=== PATIENT | female | born 1985 | race Asian ===

== ENCOUNTER 2017-02-16 11:23 | Emergency (ER) | payer OTHER ==
[~2017-02-16] VITALS: Ht 160 cm; Wt 63.5 kg
[~2017-02-16 11:23] MED LIST: BUTA1TAB55 PO; CODE118S2 PO; CPR500T PO; FRS325T PO; HYDR-1231 PO; HYDR-2856; HYDR-3714 PO; HYDR-757 PO; IBP800T PO; IBUP-1773 PO; JANUVIA; NAPR-243 PO; NEOM28OI3 TP; NITR-65 PO; NITR100C3 PO; ONDA-42 SL; ONDAN4ODT PO; PHEN200T27 PO; PNV1TABL9 PO; PRM25T; PRM25T PO; SUCR1TAB PO; TRM50T PO
--- NOTE | 2017-02-16 12:15 | ED GU-Female ---
General Chief Complaint: -Female Stated Complaint: ABNORMAL VAG BLEEDING Nursing Triage Note: Pt reports abnormal vaginal bleeding that started on Tuesday 02/13. Pt reports she is on control and typically has regular periods. Pt reports LMP ended 2 weeks ago. Pt states bleeding is brown with clots. Nursing Sepsis Screen: No Definite Risk Source: patient Exam Limitations: no limitations History of Present Illness Time seen by provider: 12:12 Initial Comments To ER with reports of vaginal bleeding and cramping as well as low back pain that started on Tuesday 02/13. She states that she is on control and has regular periods typically. Her last menstrual period ended 2 weeks ago. She states that she has been passing clots. She has only had to use one pad today to control bleeding. She also states that sexual intercourse was painful. She denies fevers or chills. She is on Falmina control. Timing/Duration: getting worse, other Severity/Quality: cramping Location: suprapubic Activities at Onset: none Prior Genitourinary Problems: none Associated Symptoms: No abdominal pain, No dysuria, lower back pain, No nausea/ vomiting, No urinary frequency Allergies and Home Medications Allergies Coded Allergies: No Known Drug Allergies (Unverified , 11/10/11) Home Medications Ondansetron Hcl 4 Mg Tab, 4 MG SL Q4H PRN for NAUSEA/VOMITING, #10 FOR NAUSEA AND VOMITING Prescribed by: URSULA RIOJAS on 09/02/14 1338 Sucralfate 1 G Tablet, 1 G PO QID, #40 Prescribed by: URSULA RIOJAS on 09/02/14 1338 Constitutional: see HPI EENTM: see HPI Respiratory: no symptoms reported Cardiovascular: no symptoms reported Genitourinary: see HPI Musculoskeletal: no symptoms reported Skin: no symptoms reported Psychiatric/Neurological: No Symptoms Reported Endocrine: No Symptoms Reported Past Bzpxmtl-Htnxhg-Drnlgf Hx Patient Social History Recent Foreign Travel: No Contact w/Someone Who Travel: No Recent Infectious Disease Expo: No Immunizations Up To Date Tetanus Booster (TDap): Unknown Reproductive System Hx Reproductive Disorders: No Genitourinary Genitourinary Disorders: Kidney Stones Musculoskeletal Musculoskeletal Disorders: Chronic Back Pain Blood Transfusions Adverse Reaction to a Blood Tr: No Family Medical History Significant Family History: No Pertinent Family Hx Family Medial History: Cancer 03 FATHER (pancreatic) grandfather (pancreatic) Infertile 09 BROTHER () Kidney disease No Family History of: Abdominal aortic aneurysm Leicester's disease Alcoholism Aphasia Cancer of colon Cataract Chest pain Congenital heart disease Congestive heart failure Cystic fibrosis Dementia Dysphagia Family history: Allergy Family history: Alzheimer's disease Family history: Arthritis Family history: Asthma Family history: Breast disease Family history: Cardiovascular disease Family history: Coronary thrombosis Family history: Diabetes mellitus Family history: Gastrointestinal disease Family history: Glaucoma Family history: Hypertension Family history: Osteoporosis Family history: Thyroid disorder Headache Hearing loss Heart disease Hereditary disease History of - anemia History of - disorder History of - respiratory disease History of drug abuse Human immunodeficiency virus (HIV) seropositivity Hypercholesterolemia Malignant neoplasm of lung Myocardial infarction Parkinson's disease Prostate cancer Psychotic disorder Seizure disorder Stroke Tuberculosis Visual impairment Physical Exam Vital Signs Vital Sign - Last 12Hours 02/16/17 11:35 Temp 99.1 Pulse 97 Resp 18 B/P (MAP) 119/81 Pulse Ox 96 O2 Delivery Room Air Capillary Refill : Less Than 3 Seconds General Appearance: WD/WN, no apparent distress HEENT: PERRL/EOMI, normal ENT inspection Neck: non-tender, full range of motion Respiratory: no respiratory distress, no accessory muscle use Gastrointestinal: non tender, soft Extremities: normal range of motion, non-tender Neurologic/Psychiatric: alert, normal mood/affect, oriented x 3 Skin: normal color, warm/dry Progress/Results/Core Measures Results/Orders Lab Results Laboratory Tests Test 02/16/17 12:44 02/16/17 14:22 Range/Units White Blood Count 7.2 4.3-11.0 10^3/uL Red Blood Count 4.30 L 4.35-5.85 10^6/uL Hemoglobin 12.6 11.5-16.0 G/DL Hematocrit 37 35-52 % Mean Corpuscular Volume 87 80-99 FL Mean Corpuscular Hemoglobin 29 25-34 PG Mean Corpuscular Hemoglobin Concent 34 32-36 G/DL Red Cell Distribution Width 14.6 H 10.0-14.5 % Platelet Count 199 130-400 10^3/uL Mean Platelet Volume 11.9 H 7.4-10.4 FL Neutrophils (%) (Auto) 67 42-75 % Lymphocytes (%) (Auto) 25 12-44 % Monocytes (%) (Auto) 6 0-12 % Eosinophils (%) (Auto) 2 0-10 % Basophils (%) (Auto) 1 0-10 % Neutrophils # (Auto) 4.8 1.8-7.8 X 10^3 Lymphocytes # (Auto) 1.8 1.0-4.0 X 10^3 Monocytes # (Auto) 0.4 0.0-1.0 X 10^3 Eosinophils # (Auto) 0.1 0.0-0.3 10^3/uL Basophils # (Auto) 0.0 0.0-0.1 10^3/uL Prothrombin Time 13.9 12.2-14.7 SEC INR Comment 1.1 0.8-1.4 Activated Partial Thromboplast Time 32 24-35 SEC Sodium Level 138 135-145 MMOL/L Potassium Level 4.3 3.6-5.0 MMOL/L Chloride Level 109 H 98-107 MMOL/L Carbon Dioxide Level 24 21-32 MMOL/L Anion Gap 5 5-14 MMOL/L Blood Urea Nitrogen 7 7-18 MG/DL Creatinine 0.67 0.60-1.30 MG/DL Estimat Glomerular Filtration Rate > 60 BUN/Creatinine Ratio 10 Glucose Level 94 70-105 MG/DL Calcium Level 9.0 8.5-10.1 MG/DL Total Bilirubin 0.3 0.1-1.0 MG/DL Aspartate Amino Transf (AST/SGOT) 14 5-34 U/L Alanine Aminotransferase (ALT/SGPT) 17 0-55 U/L Alkaline Phosphatase 45 40-136 U/L Total Protein 7.0 6.4-8.2 GM/DL Albumin 4.0 3.2-4.5 GM/DL Urine Color OTHER H Urine Clarity VERY CLOUDY H Urine pH 8 5-9 Urine Specific [place] 1.010 L 1.016-1.022 Urine Protein NEGATIVE NEGATIVE Urine Glucose (UA) NEGATIVE NEGATIVE Urine Ketones NEGATIVE NEGATIVE Urine Nitrite NEGATIVE NEGATIVE Urine Bilirubin NEGATIVE NEGATIVE Urine Urobilinogen NORMAL NORMAL MG/DL Urine Leukocyte Esterase 2+ H NEGATIVE Urine RBC (Auto) 5+ H NEGATIVE Urine RBC TNTC H /HPF Urine WBC 2-5 /HPF Urine Squamous Epithelial Cells >50 H /HPF Urine Renal Epithelial Cells NONE /HPF Urine Crystals NONE /LPF Urine Bacteria TRACE /HPF Urine Casts NONE /LPF Urine Mucus NEGATIVE /LPF Urine Culture Indicated NO My Orders Orders - URSULA RIOJAS [employer] Cbc With Automated Diff (02/16/17 12:09) Comprehensive Metabolic Panel (02/16/17 12:09) Ua Culture If Indicated (02/16/17 12:09) Protime With Inr (02/16/17 12:09) Partial Thromboplastin Time (02/16/17 12:09) Urine Bedside (02/16/17 12:09) Us Non Ob Transvaginal [id number] (02/16/17 12:09) Vital Signs/I&O Vital Sign - Last 12Hours 02/16/17 11:35 Temp 99.1 Pulse 97 Resp 18 B/P (MAP) 119/81 Pulse Ox 96 O2 Delivery Room Air Blood Pressure Mean: 94 Diagnostic Imaging Diagonstic Imaging: Ultrasound Comments NAME: ART ANG[facility] REC#: [id number] PT STATUS: REG ER : 1985 PHYSICIAN: URSULA RIOJAS APRN ADMIT DATE: 02/16/17/ER Signed Date of Exam:02/16/17 US NON OB TRANSVAGINAL [id number] Transvaginal pelvic ultrasound. INDICATION: Abnormal bleeding, low back pain. FINDINGS: Uterus is 6.6 x 4.5 x 4.6 cm. The endometrial stripe is 5 mm in thickness. The right ovary is 5.8 x 1.9 x 1.7 cm. The ovarian tissue around it demonstrates color flow with arterial and venous waveforms. There is a simple-appearing cyst measuring 4.0 x 1.6 x 2.8 cm with no internal solid component. The left ovary is 4.9 x 1.5 x 1.3 cm with multiple normal-appearing follicles seen in the arterial and venous waveforms seen. Minimal amount of free fluid is seen in the pelvis adjacent to the right ovary. IMPRESSION: Simple-appearing 4-cm right ovarian cyst. Dictated by: Dictated on workstation # [id number] Dict: 02/16/17 1354 Trans: 02/16/17 1412 [id number] Interpreted by: WALYON ROSADO MD Electronically signed by: WAYLON ROSADO MD 02/16/17 1412 Departure Impression Impression: Primary Impression: Right ovarian cyst Additional Impression: Irregular menstrual bleeding Disposition: 01 HOME, SELF-CARE Condition: Stable Departure-Patient Inst. Decision time for Depature: 14:32 Referrals: LIANNA CABRERA DO (PCP/Family) Primary Care Physician Patient Instructions: IRREGULAR VAGINAL BLEEDING, Ovarian Cyst (DC) Add. Discharge Instructions: 1. Follow-up with Dr. Cabrera. Call today or tomorrow to make an appointment to be seen in the next few weeks to schedule a repeat ultrasound to make sure that this cyst is going away. This ovarian cyst on your right ovary is most likely the cause of your symptoms. 2. Take oiag-mib-cazirbr ibuprofen 800 mg every 6 hours to reduce bleeding and cramping. All discharge instructions reviewed with patient and/or family. Voiced understanding. Work/School Note: Work Release Form Date Seen in the Emergency Department: Feb 16, 2017 Return to Work: Feb 17, 2017 Copy Copies To 1: LIANNA CABRERA PETER J APRN Feb 16, 2017 12:15
[2017-02-16 12:58] LABS: BASOPHILS % (AUTO) 1 % (0-10); EOSINOPHILS # (AUTO) 0.1 10^3/uL (0.0-0.3); EOSINOPHILS % (AUTO) 2 % (0-10); LYMPHOCYTES # (AUTO) 1.8 X 10^3 (1.0-4.0); LYMPHOCYTES % (AUTO) 25 % (12-44); MEAN CORPUSCULAR HEMOGLOBIN 29 PG (25-34); MEAN CORPUSCULAR HGB CONC 34 G/DL (32-36); MEAN CORPUSCULAR VOLUME 87 FL (80-99); MEAN PLATELET VOLUME 11.9 FL (7.4-10.4); MONOCYTES # (AUTO) 0.4 X 10^3 (0.0-1.0); MONOCYTES % (AUTO) 6 % (0-12); NEUTROPHILS # (AUTO) 4.8 X 10^3 (1.8-7.8); NEUTROPHILS % (AUTO) 67 % (42-75); PLATELET COUNT 199 10^3/uL (130-400); RED CELL DISTRIBUTION WIDTH 14.6 % (10.0-14.5); WHITE BLOOD COUNT 7.2 10^3/uL (4.3-11.0)
[2017-02-16 13:08] LABS: INR 1.1 (0.8-1.4); PROTHROMBIN TIME PATIENT 13.9 SEC (12.2-14.7)
[2017-02-16 13:19] LABS: ALANINE AMINOTRANSFERASE 17 U/L (0-55); ANION GAP 5 MMOL/L (5-14); ASPARTATE AMINO TRANSFERASE 14 U/L (5-34); BILIRUBIN,TOTAL 0.3 MG/DL (0.1-1.0); BLOOD UREA NITROGEN 7 MG/DL (7-18); BUN/CREATININE RATIO 10; CARBON DIOXIDE 24 MMOL/L (21-32); CHLORIDE 109 MMOL/L (98-107); CREATININE SERUM 0.67 MG/DL (0.60-1.30); GFR ESTIMATED > 60; GLUCOSE 94 MG/DL (70-105); POTASSIUM 4.3 MMOL/L (3.6-5.0); SODIUM 138 MMOL/L (135-145)
--- NOTE | 2017-02-16 14:12 | Diagnostic Imaging Report ---
Transvaginal pelvic ultrasound. INDICATION: Abnormal bleeding, low back pain. FINDINGS: Uterus is 6.6 x 4.5 x 4.6 cm. The endometrial stripe is 5 mm in thickness. The right ovary is 5.8 x 1.9 x 1.7 cm. The ovarian tissue around it demonstrates color flow with arterial and venous waveforms. There is a simple-appearing cyst measuring 4.0 x 1.6 x 2.8 cm with no internal solid component. The left ovary is 4.9 x 1.5 x 1.3 cm with multiple normal-appearing follicles seen in the arterial and venous waveforms seen. Minimal amount of free fluid is seen in the pelvis adjacent to the right ovary. IMPRESSION: Simple-appearing 4-cm right ovarian cyst. Dictated by: Dictated on workstation # [id number]
[2017-02-16 14:31] LABS: BILIRUBIN,URINE NEGATIVE (NEGATIVE); KETONES,URINE NEGATIVE (NEGATIVE); LEUKOCYTE ESTERASE ,URINE 2+ (NEGATIVE); NITRITE,URINE NEGATIVE (NEGATIVE); PH,URINE 8 (5-9); PROTEIN,URINE NEGATIVE (NEGATIVE); UROBILINOGEN,URINE NORMAL (NORMAL)
[2017-02-16 14:55] LABS: SQUAMOUS EPITHELIAL CELL,UR >50 /HPF
[2017-02-16 15:04] VITALS: BP 102/65
== END 2017-02-16 15:04 | disposition home or self-care (01) ==
LOC: EDUNIT# 11:23 → ER 11:28
DX: N83.201 Unspecified ovarian cyst, right side (principal); N92.6 Irregular menstruation, unspecified; Z87.442 Personal history of urinary calculi; Z80.0 Family history of malignant neoplasm of digestive organs
CPT/HCPCS: 36415; 76830; 80053; 81000; 85025; 85610; 85730; 99283

== ENCOUNTER → 2017-05-15 | Outpatient (CLI) | payer OTHER ==
--- NOTE | 2017-05-15 14:51 | Diagnostic Imaging Report ---
INDICATION: Persistent pelvic pain. COMPARISON: 02/16/2017. FINDINGS: Uterus measures approximately 6.5 x 5 x 4.6 cm. Endometrial stripe measures 1.1 cm. No myometrial masses are seen. Right ovary measures 4.1 x 2.2 x 2.4 cm. There are multiple follicular cysts. The dominant cyst previously noted has decreased considerably in size now measuring 1.9 x 1.2 cm. This previously measured 4 x 2.8 x 1.6 cm. Left ovary measures approximate 4.9 x 1.8 x 2 cm. Multiple follicular cysts are present. There is a cyst present with debris measuring 1.8 x 1.5 cm now consistent with a hemorrhagic cyst. There is a small amount of free fluid present adjacent to the left ovary. IMPRESSION: 1. Significant decrease in size of a simple cyst in the right ovary since previous exam. 2. Development of a complex cyst measuring 1.8 cm in the left ovary likely representing hemorrhagic cyst with small amount of free fluid present. Dictated by: Dictated on workstation # [id number]
== END ==
LOC: RAD 13:09
PROVIDERS: ATTEND Family Medicine
DX: N83.201 Unspecified ovarian cyst, right side (principal); N83.202 Unspecified ovarian cyst, left side
CPT/HCPCS: 76830; 76856

== ENCOUNTER 2017-05-27 13:19 | Outpatient (CLI) | payer OTHER ==
[~2017-05-27] VITALS: Ht 160 cm; Wt 58.1 kg
[2017-05-27 13:25] VITALS: BP 115/77
[2017-05-27 13:55] LABS: BASOPHILS % (AUTO) 1 % (0-10); EOSINOPHILS # (AUTO) 0.2 10^3/uL (0.0-0.3); EOSINOPHILS % (AUTO) 3 % (0-10); LYMPHOCYTES # (AUTO) 1.6 X 10^3 (1.0-4.0); LYMPHOCYTES % (AUTO) 21 % (12-44); MEAN CORPUSCULAR HEMOGLOBIN 30 PG (25-34); MEAN CORPUSCULAR HGB CONC 34 G/DL (32-36); MEAN CORPUSCULAR VOLUME 88 FL (80-99); MEAN PLATELET VOLUME 11.9 FL (7.4-10.4); MONOCYTES # (AUTO) 0.5 X 10^3 (0.0-1.0); MONOCYTES % (AUTO) 6 % (0-12); NEUTROPHILS # (AUTO) 5.2 X 10^3 (1.8-7.8); NEUTROPHILS % (AUTO) 69 % (42-75); PLATELET COUNT 214 10^3/uL (130-400); RED BLOOD COUNT 4.33 10^6/uL (4.35-5.85); RED CELL DISTRIBUTION WIDTH 14.3 % (10.0-14.5); WHITE BLOOD COUNT 7.6 10^3/uL (4.3-11.0)
[2017-05-27] MEDS ORDERED: AMOX-355 PO (13:59)
[2017-05-28] MEDS ORDERED: IBUP-1773 PO (07:25)
[2017-05-28] MEDS ORDERED: HYDR-757 PO (07:25)
== END 2017-05-27 13:45 | disposition home or self-care (01) ==
LOC: PREOP 13:19
PROVIDERS: ATTEND Obstetrics & Gynecology
DX: Z01.812 Encounter for preprocedural laboratory examination (principal); Z11.2 Encounter for screening for other bacterial diseases; R10.2 Pelvic and perineal pain; N83.201 Unspecified ovarian cyst, right side
CPT/HCPCS: 36415; 84703; 85025; 87081

== ENCOUNTER 2017-05-28 06:57 | Day surgery (SDC) | payer OTHER ==
[~2017-05-28] VITALS: Ht 160 cm; Wt 58.1 kg
[~2017-05-28 06:57] MED LIST changes: +AMOX-355 PO
[2017-05-28] MEDS ORDERED: MIDAZOLAM 2 MG/2 ML (VERSED) VIAL IV ONE (07:15)
[2017-05-28] MEDS ORDERED: ceFAZolin 1,000 MG (ANCEF) VIAL ONE (07:19)
[2017-05-28] MEDS ORDERED: NS (IVPB) 50 ML ONE (07:19)
[2017-05-28] MEDS ORDERED: BUPIVACAINE 0.25% 30 ML (SENSORCAINE) VIAL ONE (07:21)
--- NOTE | 2017-05-28 07:23 | Progress Note-Pre Operative ---
Pre-Operative Progress Note H&P Reviewed The H&P was reviewed, patient examined and no changes noted. Date Seen by Provider: May 28, 2017 Time Seen by Provider: 08:00 Date H&P Reviewed: May 28, 2017 Time H&P Reviewed: 08:00 Pre-Operative Diagnosis: Ovarian cyst, Dysparenuia, Acute on CPP CAITLYN MAZARIEGOS DO May 28, 2017 7:23 am
--- NOTE | 2017-05-28 07:24 | Discharge Inst-Women's Service ---
Discharge Inst-Women's Serv Depart Medication/Instructions New, Converted or Re-Newed RX: RX on Chart Consults/Follow Up Additional Follow Up: Yes Activity Activity: Activity as Tolerated Driving Instructions: You May Drive (do not drive until after 06/01) NO SMOKING: NO SMOKING Diet Discharge Diet: No Restrictions Symptoms to Report to : Bleeding Excessive, Pain Increased, Fever Over 101 Degrees F, Vaginal Bleeding Increase, Questions/Concerns For Any Problems or Questions: Contact Your Physician Skin/Wound Care Infection Signs and Symptoms: Increased Redness, Foul Odor of Wound, Increased Drainage, Skin Itchy or Has a Rash, Increased Swelling, Temperature Above 101 F Operative Area Clean and Dry: Keep Incision Clean/Dry Stitches/[place]/Dermabond: Dermabond, Care of Stitches Bathing Instructions: CAITLYN Iraheta DO May 28, 2017 7:24 am
[2017-05-28] MEDS ORDERED: HYDR-757 PO (07:25)
[2017-05-28] MEDS ORDERED: IBUP-1773 PO (07:25)
[2017-05-28] MEDS ORDERED: LACTATED RINGERS 1,000 ML IV PRN (07:25)
[2017-05-28] MEDS ORDERED: ceFAZolin INJECTION 1,000 MG in NS (IVPB) 50 ML IV ONE (07:30)
[2017-05-28 07:50] VITALS: BP 108/75
[2017-05-28] MEDS ORDERED: proPOfol 200 MG/20 ML (DIPRIVAN) VIAL IV ONE (07:53)
[2017-05-28] MEDS ORDERED: ROCURONIUM 50 MG/5 ML (ZEMURON) VIAL IV ONE (07:53)
[2017-05-28] MEDS ORDERED: LIDOCAINE PF 2% 5 ML (XYLOCAINE) VIAL ONE (07:53)
[2017-05-28] MEDS ORDERED: MIDAZOLAM 2 MG/2 ML (VERSED) VIAL ONE (07:53)
[2017-05-28] MEDS ORDERED: fentaNYL INJECTION 100 MCG/2 ML AMP ONE (07:53)
[2017-05-28] MEDS ORDERED: SEVOFLURANE (ULTANE) 15 ML INHAL SOLN ONE (07:53)
[2017-05-28] MEDS ORDERED: ONDANSETRON 4 MG/2 ML (SDV) Z0FRAN ONE (07:54)
[2017-05-28] MEDS ORDERED: DEXAMETHASONE 10 MG/ML (DECADRON) 1 ML VIAL ONE (07:54)
[2017-05-28] MEDS ORDERED: ceFAZolin 1 GM/NS 50 ML IVPB IV ONE ×2 (08:15)
[2017-05-28] MEDS ORDERED: NEOSTIGMINE (BLOXIVERZ ) 1 MG/1ML 10 ML VIAL ONE (08:52)
[2017-05-28] MEDS ORDERED: GLYCOPYRROLATE 0.2 MG/ML (ROBINUL) 2 ML VIAL ONE (08:52)
[2017-05-28] MEDS: morphine INJ 10 MG/ML 1ML (SYR OR VIAL) IVP PRN ×2 (09:10→09:15)
[2017-05-28] MEDS ORDERED: ONDANSETRON 4 MG/2 ML (SDV) Z0FRAN IVP PRN (09:15)
[2017-05-28] MEDS ORDERED: MEPERIDINE (DEMEROL) INJ 50 MG/ML IVP PRN (09:15)
[2017-05-28 09:50] VITALS: BP 112/77
[2017-05-28] MEDS: LACTATED RINGERS 1,000 ML IV PRN (09:54)
[2017-05-28 10:20] VITALS: BP 103/69
[2017-05-28 10:51] VITALS: BP 92/61
--- NOTE | 2017-05-28 17:32 | OPERATIVE REPORT ---
DATE OF SERVICE: 05/28/2017 PREOPERATIVE DIAGNOSES: 1. This 31-year-old female with qdcoc-gw-kspzfxw pelvic pain. 2. Dyspareunia. POSTOPERATIVE DIAGNOSES: 1. This 31-year-old female with xiwze-yl-ftswkot pelvic pain. 2. Dyspareunia. 3. Endometriosis of the uterosacral ligament. PROCEDURE PERFORMED: Laparoscopic destruction of endometriosis implants as well as right ovarian cystotomy. SURGEON: Armaan Goddard DO ANESTHESIA: General endotracheal. ESTIMATED BLOOD LOSS: Minimal. URINE OUTPUT: 75 mL. FLUIDS: 1000 of lactated Ringer's solution. FINDINGS: Peritoneal implant with José Miguel-Masters window of the uterosacral ligament. A right ovarian cyst that is simple and clear fluid-filled. SPECIMEN SENT: None. INDICATIONS FOR PROCEDURE: This 31-year-old female is a patient that returned to my office after having some chronic pelvic pain issues and undergoing a pelvic ultrasound, which did not offer any answer for her pain. I discussed with the patient the possibility of endometriosis or ovarian cyst formation that could potentially be contributing to her pain. I discussed with her performing a diagnostic laparoscopy to diagnose as such due to her ongoing pain issues, which are debilitating for her throughout the day. Her is very concerned as far as throughout the day she will stop and grimace in pain. She is also going to the point where intercourse is unbearable. Risk of the procedure was discussed with her and her present. Risk of bleeding, infection, risk of damaging surrounding structures where I am working including bowel, bladder, ureter, kidneys, risk for possible need of blood transfusion and laparotomy, and recovery timeframe was all discussed with the patient. After all of her questions were answered, consent was obtained in the preoperative area and the patient was taken to the operating room. OPERATIVE REPORT IN DETAIL: Once in the operating room, general anesthesia was found to be adequate. She was placed in dorsal lithotomy position, prepped and draped in normal sterile fashion. A Choi catheter was placed in sterile technique. A weighted speculum was inserted into the patient's vagina. A right angle retractor was used to visualize the cervix, which was grasped at 12 o'clock position using a long Allis clamp. I then gently sound the uterine cavity depth to 8 cm. I selected a [employer] uterine manipulator and placed within the uterine cavity, deployed the balloon, which allows me to manipulate the uterus on bimanual examination. I then performed a change of gloves after removing all other instruments from the patient's vagina and then take my attention to the abdomen where infraumbilically I infiltrated this area using 0.25% Marcaine and make a 5 mm incision and directed a Veress needle through this incision until entry into place was confirmed using saline drop test. I proceeded with insufflation using CO2 gas until maximum pressure of 15 mmHg was noted. I then removed the Veress needle and introduced a 5 mm blunt trocar through this incision. I am able to confirm intraperitoneal placement and confirm there is no damage upon entry using a 5 mm laparoscope. We then had the patient placed in steep Trendelenburg, I am able to visualize all the findings described above. I placed two separate trocars suprapubic and a left lower quadrant trocar in similar fashion. They were 5 mm trocars. The skin is infiltrated using 0.25% Marcaine. Incisions were made with a knife and the trocars were placed under direct vision using a laparoscope. Once these are in place, I am able to elevate the right ovary and also cauterize the endometriosis implant and the extent of the José Migule-Masters windows in the right uterosacral ligament. Once these were taken down, there is no active bleeding noted from any of my dissection planes. I also used my monopolar dylon to create a window within this ovarian cyst, which is visualized on the right ovary and clear fluid was drained from this. There is no active bleeding noted from any of my dissection planes after this is done. Due to no further pathology found, I released insufflation after the trocar sites were removed, the instruments from the patient's abdomen, I introduced 10 mL of 0.25% Marcaine into the peritoneal cavity. I then removed the trocars and closed two incisions using Dermabond and placed Band-Aids over these. Choi catheter was removed. The [employer] uterine manipulator was removed. The patient tolerated the procedure well and sent to recovery area in stable condition. Lap and sponge counts were correct at the end of the procedure. Instrument counts are correct as well. Job ID: [id number] DocumentID: [id number] Dictated Date: 05/28/2017 09:18:12 Keno Dealer Date: 05/28/2017 17:32:30 Dictated By: DO BETI STEPHEN
== END 2017-05-28 11:42 | disposition home or self-care (01) ==
LOC: SDC 06:57
PROVIDERS: ATTEND Obstetrics & Gynecology
DX: N80.3 Endometriosis of pelvic peritoneum (principal); N94.10 Unspecified dyspareunia; R10.2 Pelvic and perineal pain; N83.8 Other noninflammatory disorders of ovary, fallopian tube and broad ligament; F17.210 Nicotine dependence, cigarettes, uncomplicated
CPT/HCPCS: 86850; 86900; 86901